=== PATIENT | female | born 1980 | race Caucasian/White ===

== ENCOUNTER 2021-06-21 04:59 | Emergency (ER) | payer OTHER, SELFPAY ==
--- NOTE | ~2021-06-21 | CT_ITS ---
EXAMINATION: CT abdomen pelvis wo con DATE: 06/21/2021 07:04 INDICATION: Renal stone presenting with lower abdominal pain TECHNIQUE: Computed tomography (CT) of the abdomen and pelvis was performed without intravenous contr ast. Automated exposure control and iterative reconstruction technique were employed. The dose-length product was 350.71 mGy-cm. COMPARISON: None FINDINGS: Lung bases are clear. Heart size is normal. No pericardial or pleural effusion. Liver, gallbladder, s pleen, pancreas and bilateral adrenal glands are normal. 7 x 4 x 2 mm obstructing stone in the proxim al left ureter with moderate left hydronephrosis and prominent left perinephric stranding. 1 mm nonob structing stones at upper and lower pole calyces of the right kidney. Bowels including the appendix a re normal. Bladder and anteverted uterus are normal. Bilateral tubal ligation rings in expected posit ions. Small amount of likely physiologic free fluid in the cul-de-sac. No pathologically enlarged abd ominal or pelvic lymphadenopathy. Mild thoracolumbar dextrocurvature. IMPRESSION: 1. Bilateral nephrolithiasis with obstructing 7 x 4 x 2 mm proximal left ureteral stone with moderate left hydronephrosis. Correlate with urinalysis to exclude associated ascending urinary tract infecti on. Reviewed, dictated and finalized at location A. IMPRESSION: 1. Bilateral nephrolithiasis with obstructing 7 x 4 x 2 mm proximal left ureter al stone with moderate left hydronephrosis. Correlate with urinalysis to exclud e associated ascending urinary tract infection.
[2021-06-21 05:00] VITALS: BP 139/90; PULSE 86; RESP 20; TEMP 36.8; O2SAT 99
[2021-06-21] MEDS: ONDANSETRON INJ 4 MG/2 ML VIAL IV PUSH ×2 (05:25→07:35)
[2021-06-21] MEDS: SODIUM CHLORIDE 0.9% IV 1,000 ML 999 ML IV CONT (05:26)
[2021-06-21] MEDS: PANTOPRAZOLE SODIUM IV 40 MG VIAL IV PUSH (05:27)
[2021-06-21] MEDS: DICYCLOMINE HCL INJ 20 MG/2 ML VIAL IM (05:27)
[2021-06-21] MEDS: KETOROLAC 30 MG/ML VIAL (*BKC) IV PUSH (05:31)
[2021-06-21 05:44] LABS: Basophils Absolute Auto 0.04 K/mm3 (0.00-0.10); Basophils Percent Auto 0.4 % (0.0-1.0); Eosinophils Percent Auto 0.9 % (1.0-6.0); Hematocrit 37.5 % (35.0-49.0); Hemoglobin 12.5 g/dL (12.0-15.0); Immature Granulocyte Absolute 0.05 K/mm3 (0.00-0.00); Immature Granulocyte Percent A 0.5 % (0.0-0.0); Lymphocytes Percent Auto 9.5 % (18.0-42.0); Mean Corpuscular HGB Conc 33.3 g/dL (32.0-36.0); Mean Corpuscular Hemoglobin 32.3 pg (27.0-31.0); Mean Corpuscular Volume 96.9 fL (78.0-102.0); Mean Platelet Volume 10.1 fl (9.2-11.8); Monocytes Absolute Auto 0.44 K/mm3 (0.10-0.90); Monocytes Percent Auto 4.2 % (2.0-11.0); Neutrophils Absolute Auto 8.9 K/mm3 (1.7-7.2); Neutrophils Percent Auto 84.5 % (50.0-70.0); Platelet Count Result 211 K/mm3 (150-420); Red Blood Count 3.87 M/mm3 (4.20-5.40); Red Cell Distribution Width 12.3 % (11.6-14.4); White Blood Count 10.5 K/mm3 (4.8-10.8)
[2021-06-21 05:47] LABS: Add Urine Microscopic? YES; Appearance Urine Clear (Clear); Bilirubin Urine Negative (Negative); Blood Urine 1+ (Negative); Color Urine Light Yellow (Yellow); Glucose Urine UA Negative (Negative); Ketones Urine Negative (Negative); Leukocyte Esterase Ur 2+ LEU/UL (Negative); Nitrate Urine Negative (Negative); Protein Urine 1+ (Negative); Urobilinogen Urine 0.2 mg/dL (0.2-1.0); pH Urine 7.5 (5.0-8.0)
--- NOTE | 2021-06-21 05:55 | ED.ABDPAIN ---
HPI - Abdominal Pain General Chief Complaint: Abdominal Pain <Kumar L. MD Adan Mackenzie Last Filed: 06/28/21 13:02> Stated Complaint: SICKNESS <MD Adan Lopez Last Filed: 06/28/21 13:02> Time Seen by Provider: 06/21/21 05:15 <MD Adan Lopez Last Filed: 06/28/21 13:02> Source: patient <MD Adan Lopez Last Filed: 06/28/21 13:02> Mode of arrival: ambulatory <MD Adan Lopez Last Filed: 06/28/21 13:02> Limitations: no limitations <MD Adan Lopez Last Filed: 06/28/21 13:02> History of Present Illness HPI narrative: Patient ate a chicken sandwich at 6pm from [employer] and by 9:30pm had developed recurrent nausea and emesis that has lasted all night. She has had severe abdominal cramping associated with recurrent nausea and emesis. This has been ongoing since 930pm. Nothing has helped decrease her nausea. <MD Adan Lopez Last Filed: 06/28/21 13:02> MD elicited complaint: abdominal pain <MD Adan Lopez Last Filed: 06/28/21 13:02> Onset (ago): hour(s) <MD Adan Lopez Last Filed: 06/28/21 13:02> Pain Consistency: constant <MD Adan Lopez Last Filed: 06/28/21 13:02> Location: diffuse <MD Adan Lopez Last Filed: 06/28/21 13:02> Severity: severe <MD Adan Lopez Last Filed: 06/28/21 13:02> Quality: cramping <MD Adan Lopez Last Filed: 06/28/21 13:02> Radiation: epigastric <MD Adan Lopez Last Filed: 06/28/21 13:02> Exacerbating factors: other (chicken sandwich from [employer]) <MD Adan Lopez Last Filed: 06/28/21 13:02> Relieving factors: nothing <MD Adan Lopez Last Filed: 06/28/21 13:02> Context: confirms possible food poisoning <Kumar Mackenzie, MD - Last Filed: 06/28/21 13:02> Associated symptoms: denies other symptoms <MD Adan Lopze Last Filed: 06/28/21 13:02> Related Data Patient : No <MD Adan Lopez Last Filed: 06/28/21 13:02> Home Medications: Home Medications Medication Instructions Recorded Confirmed alprazolam 0.25 mg PO BID 06/21/21 06/21/21 bupropion HCl [Wellbutrin XL] 300 mg PO QAM 06/21/21 06/21/21 <MD Adan Lopez Last Filed: 06/28/21 13:02> Allergies/Adverse Reactions: Allergies Allergy/AdvReac Type Severity Reaction Status Date / Time No Known Allergies Allergy Verified 06/21/21 18:59 <MD Adan Lopez Last Filed: 06/28/21 13:02> Review of Systems Constitutional: Constitutional: Reports fatigue <Kumar LMD Adan Suero Last Filed: 06/28/21 13:02> Eyes: Eyes: Reports no additional eye complaints <Kumar L. MD Adan Mackenzie Last Filed: 06/28/21 13:02> ENT: Reports system reviewed and no additional complaints, except as documented <MD Adan Lopez Last Filed: 06/28/21 13:02> Cardiovascular: Cardiovascular: Reports no additional cardiovascular complaints <Kumar L. MD Adan Mackenzie Last Filed: 06/28/21 13:02> Respiratory: Respiratory: Reports no additional respiratory complaints <Kumar LMD Adan Suero Last Filed: 06/28/21 13:02> Gastrointestinal: Gastrointestinal: Reports as per HPI, Reports abdominal pain, Reports nausea and Reports vomiting <Kumar LMD Adan Suero Last Filed: 06/28/21 13:02> Genitourinary: Genitourinary: Reports no additional female genitourinary complaints <Kumar LMD Adan Suero Last Filed: 06/28/21 13:02> Musculoskeletal: Musculoskeletal: Reports no additional musculoskeletal complaints <Kumar LMD Adan Suero Last Filed: 06/28/21 13:02> Integumentary/Breasts: Skin/Breast: Reports system reviewed and no additional complaints, except as docu <Kumar L. Day, MD - Last Filed: 06/28/21 13:02> Neurologic: Reports system reviewed and no additional complaints, except as documented <Kumar LObdulio Mackenzie MD - Last Filed: 06/28/21 13:02> Psychiatric: Psychiatric: Reports no additional psychiatric complaints <Kumar L. MD Avril - Last Filed: 06/28/21 13:02> Endocrine: Endocrine: Reports no additional endocrine complaints <Kumar LObdulio Mackenzie MD
[2021-06-21 05:56] LABS: Bacteria Urine 1+ /hpf; Squamous Epithelial Cell Urine None seen /hpf (Few); WBC Urine 21-30 /hpf (0-3)
[2021-06-21 06:00] LABS: Alanine Aminotransferase 24 U/L (14-59); Albumin Level 3.2 g/dL (3.4-5.0); Alkaline Phosphatase 49 U/L (46-116); Anion Gap 11 mmol/L (8-16); Aspartate Amino Transferase 14 U/L (15-37); Bilirubin,Total 0.2 mg/dL (0.00-1.00); Blood Urea Nitrogen 12 mg/dL (7-18); Calcium 8.3 mg/dL (8.5-10.1); Carbon Dioxide 27 mmol/L (21-32); Chloride 107 mmol/L (98-108); Estimated CRCL calculation 61 ml/min; Estimated Glomerular Filt Rate 57; Glucose 111 mg/dL (70-99); Lipase 66 U/L (73-393); Osmolality Calculated 300 mOsm/kg (285-295); Potassium 3.5 mmol/L (3.5-5.1); Sodium 145 mmol/L (136-145); Total Protein 5.9 g/dL (6.4-8.2)
[2021-06-21 06:45] LABS: Pregnancy On Board Control Positive; Urine Pregnancy Test Negative
[2021-06-21] MEDS: BACLOFEN 10 MG TABLET 20 MG PO (06:47)
[2021-06-21] MEDS: MORPHINE SULFATE (*CRX) 2 MG/ML INJ IV PUSH ×4 (07:35→13:02)
--- NOTE | 2021-06-21 07:45 | PC.NURSE ---
[facility] contacted for o/c urologist. Dr. Chen o/c per Yes[facility] tank house operator, exchange contacted.
[2021-06-21 08:26] VITALS: BP 115/76; PULSE 99; RESP 18; O2SAT 97
--- NOTE | 2021-06-21 08:58 | PCDIET ---
at [address] Chen's PA, pt accepted. will put pt on surgery schedule today for 1700. awaiting call-back from [place] spikemaking supervisor to confirm admission and bed placement.
--- NOTE | 2021-06-21 09:16 | PC.NURSE ---
pt voices continued pain to left flank. denies nausea at this time. on phone with family making arrangements for car and hotel and school. iv lock intact to right forearm.
--- NOTE | 2021-06-21 09:43 | PC.NURSE ---
[facility] nursing super visor contacted to inquire on bed status. pt will need to be in PACU at noon today for the surgery. supervisor kennel attempting to locate a bed for her until then. supervisor kennel states she will call back in 30 min with update.
--- NOTE | 2021-06-21 10:29 | PC.NURSE ---
report given to Yesenia general warehouse worker, at [facility]. pt to be transferred at 1400 directly to PACU. saas acceptred scheduled transfer and will be here to pick pt up at 1400. pt moved to room 202 for comfort during wait. voices much pain relief after last pain med administration.
--- NOTE | 2021-06-21 10:35 | PC.NURSE ---
Patient to 205 for ED hold, to leave at 1400 for cynthia to have outpatient surgery, oriented to room, states pain is still 10/10, tearful on arrival to room,
[2021-06-21 11:21] VITALS: BP 115/90; PULSE 110; RESP 22; TEMP 37.1; O2SAT 95
--- NOTE | 2021-06-21 11:33 | PC.NURSE ---
Pain getting worse, morphine given for pain at this time, encouraged to let pain med work
[2021-06-21] MEDS: SODIUM CHLORIDE 0.9% IV 1,000 ML 100 ML IV CONT (11:42)
--- NOTE | 2021-06-21 11:48 | PC.NURSE ---
fluids started, hat placed in bathroom to monitor urine output, pain less, still moans but not crying 08/10
--- NOTE | 2021-06-21 12:58 | PC.NURSE ---
pain getting worse, verbal order to repeat 2mg IV morphine
--- NOTE | 2021-06-21 13:05 | PC.NURSE ---
morphine given for pain
[2021-06-21 13:06] VITALS: BP 115/81; PULSE 97; RESP 20; TEMP 37.2; O2SAT 95
--- NOTE | 2021-06-21 13:51 | PC.NURSE ---
Awaiting EMS for transfer to [place], resp non labored, fluids infusing,
--- NOTE | 2021-06-21 14:05 | PC.NURSE ---
discharged per ems for transfer to [place], all personal items given to patient in a bag
--- NOTE | 2021-06-21 14:10 | PC.NURSE ---
Pre op nurse given report, up dated on vitals and med given
[2021-06-21 14:12] VITALS: BP 115/87; PULSE 97; RESP 20; TEMP 37.2; O2SAT 95
== END 2021-06-21 14:10 | disposition short-term general hospital (02) ==
LOC: CHSED 09:28 → CHS2ND 10:39
PROVIDERS: Emergency Provider Emergency Medicine
DX: A05.9 Bacterial foodborne intoxication, unspecified (principal); N39.0 Urinary tract infection, site not specified; N20.0 Calculus of kidney
CPT/HCPCS: 36415; 74176; 80053; 81001; 81025; 83690; 85025; 87077; 87086; 87088; 87186; 87491; 87591; 96361; 96365; 96372; 96375; 96376; 99285; A9270; C9113; J0500; J0696; J1885; J2270; J2405; J7030

== ENCOUNTER 2021-06-21 18:10 | Observation (INO) | payer OTHER, SELFPAY ==
[2021-06-21] VITALS (11 sets, daily range): BP systolic 117–148; BP diastolic 80–98; PULSE 72–106; RESP 13–20; TEMP 35.7–36.6; O2SAT 98–100; BMI 24.9
--- NOTE | ~2021-06-21 | XR_ITS ---
EXAMINATION: XR abdomen/kub 1V EXAM DATE: 06/21/2021 17:21 INDICATION: Left ureteral stone. Postoperative. TECHNIQUE: Frontal projection(s) of the abdomen for interpretation. Comparison is made to prior exami nation from CT renal scan 06/21/2021. FINDINGS: There is a left-sided double-J ureteral stent in expected position. Suspect identification of sizable left proximal ureteral stone at the L3 level, on one of the 2 images obtained. This findin g has been indicated, marked on the examination for review, clinical correlation. Moderate amount of colonic gas. No small bowel obstruction. There is no organomegaly. IMPRESSION: 1. Probable identification left proximal ureteral stone. 2. Stent in position. Reviewed, dictated and finalized at location A.
--- NOTE | ~2021-06-21 | XR_ITS ---
EXAMINATION: XR retrograde pyelo w/stent LT EXAM DATE: 06/21/2021 16:47 INDICATION: Left ureteral stent placement. Obstructive nephropathy. TECHNIQUE: Fluoroscopy used during XR retrograde pyelo w/stent LT performed by Dr. Gagan Llanes MD, urologist. The radiologist Meliton Manning M.D. dictating this report of the image(s) available wa s not present for the procedure. Total fluoroscopic time of 37 seconds. The DAP for this procedure was 497 radcm2. A total of 90 images sent to PACS from the exam. Cine run(s) available for review. Correlation is made to CT abdomen pelvis earlier same date. FINDINGS: Probable identification of sizable left proximal ureteral stone on the wood cutter image. The le ft ureter was cannulated, injected Left ureter was cannulated, injected. Moderate left hydronephrosis . Double-J ureteral stent was placed. Correlate with procedure note. IMPRESSION: Left proximal ureteral stone, moderate hydronephrosis. Stent in position. Reviewed, dictated and finalized at location A. IMPRESSION: Left proximal ureteral stone, moderate hydronephrosis. Stent in pos ition.
[2021-06-21] MEDS: fentaNYL CITRATE INJ (*CRX) 100 MCG/2 ML VIAL 50 MCG IV PUSH (15:25)
--- NOTE | 2021-06-21 15:41 | P.CONUR_ITS ---
Assessment and Plan Assessment and plan (1) Left ureteral stone: Code(s): N20.1 - Calculus of ureter Status: Acute (2) UTI (urinary tract infection): Qualifiers: Hematuria presence: with hematuria Urinary tract infection type: acute cystitis Qualified Code(s): N30.01 - Acute cystitis with hematuria Code(s): N39.0 - Urinary tract infection, site not specified Status: Acute Assessment and Plan: * In light of obstructive uropathy with evidence of urinary tract infection will defer definitive stone intervention at this point. * Will plan cystoscopy with left ureteral stent placement. She will likely need a left ESWL in the next several weeks as definitive management for her stone. Urology Consult Note HPI Date Seen: 06/21/21 Requesting Physician: Rah Cardenas MD Primary Care Provider: UNKNOWN,DOCTOR Consult Narrative Narrative: Jessa Bergman is a 40 year old female without a history of urolithiasis, until now. 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 Last night she developed acute left flank pain radiating into her left lower quadrant. This was associated with nausea and vomiting. She attributed this to a chicken sandwich she 8 from a gas station but imaging at the ER in [place] reveals an obstructing 7 mm left proximal ureteral calculus. Although she has had no fevers or chills he has mild leukocytosis and notable pyuria on her urinalysis. Review of Systems Cardiovascular: Cardiovascular: Denies chest pain, Denies lightheadedness, Denies palpitations and Denies dyspnea Respiratory: Respiratory: Denies dyspnea Gastrointestinal: Gastrointestinal: Reports abdominal pain, Denies diarrhea, Reports nausea and Reports vomiting Genitourinary: Genitourinary: Denies hematuria and Denies dysuria Endocrine: Endocrine: Denies palpitations PMFSH Past Medical History Medical History Renal calculi Surgical History Surgical History H/O tubal ligation Family History Family History Father Bipolar 1 disorder Social History Social History Smoking status: Current every day smoker Alcohol intake: current Alcohol use details: minimal use Substance use type: marijuana Gender identity (if verbalized by the patient): Female Meds Home Medications and Allergies Home Medications Medication Instructions Recorded Confirmed Type alprazolam 0.25 mg PO BID 06/21/21 06/21/21 History bupropion HCl [Wellbutrin XL] 300 mg PO QAM 06/21/21 06/21/21 History levofloxacin 500 mg PO DAILY #7 tablet 06/21/21 Rx Allergies Allergy/AdvReac Type Severity Reaction Status Date / Time No Known Allergies Allergy Verified 06/21/21 15:28 Exam Const: General: no acute distress Resp: Effort & Inspection: normal respiratory effort GI: Inspection: non-distended GI Palp: No abdominal tenderness and No Guarding due to palpation present (GI) Auscultation: normal bowel sounds
--- NOTE | 2021-06-21 15:44 | WPDHPUPDATE1 ---
History and Physical Update Update Date/Time: 06/21/21 15:44 History and Physical has been reviewed, including an updated exam of the patient. There are NO changes in the patient's condition. Risks, benefits, and alternatives have been discussed and questions answered. Patient agrees to proceed with procedure.
[2021-06-21] MEDS: fentaNYL CITRATE INJ (*CRX) 100 MCG/2 ML VIAL 25 MCG IV PUSH ×4 (15:52→17:22)
--- NOTE | 2021-06-21 15:53 | WPDANESEPPF ---
Anes - Initial Pre Proc Eval Procedure: Operation Date: 06/21/21 17:00 Proposed Procedures p Cystoscopy, Left Stent Placement - Gagan Llanes MD Date/Time: 06/21/21 15:53 Surgeon: Rah Cardenas MD Pre Op Diagnosis: left renal stone Patient Data Age: 40 Gender: F Height: Weight: Allergies Allergy/AdvReac Type Severity Reaction Status Date / Time No Known Allergies Allergy Verified 06/21/21 15:28 Home Medications Medication Instructions Recorded Confirmed Type alprazolam 0.25 mg PO BID 06/21/21 06/21/21 History bupropion HCl [Wellbutrin XL] 300 mg PO QAM 06/21/21 06/21/21 History Patient hx anesthesia problems: none Family hx anesthesia problems: none PMFSH Past Medical History Medical History Renal calculi Surgical History Surgical History H/O tubal ligation Family History Family History Father Bipolar 1 disorder Social History Social History Smoking status: Current every day smoker Alcohol intake: current Alcohol use details: minimal use Substance use type: marijuana Gender identity (if verbalized by the patient): Female Anes - Eval Final PreProcedure Day of Procedure 06/21/21 15:53 Patient weight: normal Heart: regular rate and rhythm Lungs: clear to auscultation and normal air movement Airway: Mallampati scale class II Neurological: alert and oriented Last oral intake: >/= 8 hours ASA classification: II Emergent: no Anesthetic plan: proceed Anesthesia type and monitoring: general GIVS and standard monitoring Informed Consent: The patient's anesthetic plan and its attendant risks and benefits were discussed with the patient/family/POA. Questions were solicited and answers provided to the satisfaction of the patient/family/POA.
[2021-06-21] MEDS: ONDANSETRON INJ 4 MG/2 ML VIAL IV PUSH (16:05)
[2021-06-21] MEDS: LACTATED RINGERS 1,000 ML 30 ML IV CONT (16:06)
--- NOTE | 2021-06-21 16:50 | W.PM.PROC2 ---
Procedure Note - Detailed Date of Procedure 06/21/21 Pre-op Diagnosis Left proximal ureteral stone Post-op Diagnosis same Procedure Performed Cystoscopy, left retrograde pyelography left ureteral stent placement Surgeon Gagan Llanes MD Anesthesia general Description of Procedure patient brought to the operative suite where she is prepped draped in routine sterile fashion while in dorsal lithotomy position. [place] after the uneventful induction of a general anesthetic. Cystoscopy is undertaken with a 19 F rigid cystoscope. Bladder neck and urethra endoscopically normal. There is no intravesical foreign body neoplasm. She has a single orthotopic ureteral orifice bilaterally. Angiographic catheter was used to obtain a retrograde pyelogram. This shows a persistent stone in the left proximal ureter. A 0.035 in glidewire was advanced in the renal pelvis in a 4.8 F variable length left ureteral stent is positioned with the proximal coil in the renal pelvis and distal coil in the bladder. Scopes and wires removed and she was taken to the recovery room good condition. Drains Yes Packing No Pathology none sent Complications No immediate complications Condition stable Disposition PACU
--- NOTE | 2021-06-21 17:28 | SUR.PHASEI ---
50mcg of Fentanyl given at 1719 leftover from anesthesia. RN called anesthesiologist for orders and there is still none in the MAR. Patient said pain went from a 6 to a 3 and id tolerable now.
--- NOTE | 2021-06-21 18:30 | PM.IMHP ---
H&P: HPI History of Present Illness Date/Time: 06/21/21 18:30 Chief Complaint: Obstructing left ureteral stone. Narrative: This is a 40-year-old female with history of kidney stone at the age of 22 who was transferred to [place] today for management of an obstructing left ureteral stone noted on imaging done in the emergency department at the [facility]. She developed acute left flank pain last evening around 21:30 last evening with associated nausea and vomiting. The pain was colicky in nature and did radiate into the left lower quadrant. Initially she thought it was perhaps due to food that she had eaten earlier in the evening though a CT of the abdomen and pelvis showed bilateral nephrolithiasis with obstructing left ureteral stone with moderate hydronephrosis. She is now status post cystoscopy with stent placement per Dr. Llanes and she was having quite a bit of cramping and pulling pain. She also notes dysuria and hematuria though that just started after her cystoscopy. She has not had fever, chills, or sweats. She has had some nausea but no vomiting. Review of Systems Review of Systems: Narrative: Twelve systems were reviewed with pertinent positives and negatives as per HPI. No recent cold or flu symptoms. She denies chest pain shortness of breath. No exposure to those positive for COVID-19. Except as documented, all other systems were reviewed and are negative. [facility] Past Medical History Medical History Anxiety Bilateral nephrolithiasis (06/21/21) Surgical History Surgical History History of tubal ligation Family History Family History Father Bipolar 1 disorder Social History Social History (Updated 06/21/21 @ 22:02 by Eboni Ochoa PA-C) Social History: Surrogate decision maker: jonathan Dunbar. Code status: Full code. Smoking packs per day: 1 Smoking cigarettes per day: 20.0 Years smoked: 10 Smoking pack-years: 10.00 Smoking status: Current every day smoker Tobacco type: cigarettes Additional smoking assessment comments: Patient is trying to quit smoking in is down to a pack a week. Alcohol intake: current Drinks per week: 1 Alcohol use details: Rare alcohol use, in moderation. Substance use: current Substance use type: marijuana Living arrangements: with family Additional living arrangements comments: Lives in [place]. 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 Meds Home Medications and Allergies Home Medications Medication Instructions Recorded Confirmed Type alprazolam 0.25 mg PO BID 06/21/21 06/21/21 History bupropion HCl [Wellbutrin XL] 300 mg PO QAM 06/21/21 06/21/21 History Allergies Allergy/AdvReac Type Severity Reaction Status Date / Time No Known Allergies Allergy Verified 06/21/21 18:59 Vital Signs Vital Signs - 24 hr 06/21/21 15:59 06/21/21 16:45 06/21/21 17:00 Temperature 97.8 F 97.1 F L Pulse Rate 95 72 76 Respiratory Rate 18 18 16 Blood Pressure 145/90 H 117/82 118/87 Pulse Oximetry 100 100 100 06/21/21 17:15 06/21/21 17:30 06/21/21 17:45 Temperature Pulse Rate 82 81 106 H Respiratory Rate 13 20 20 Blood Pressure 121/86 124/88 136/95 H Pulse Oximetry 100 99 99 Exam Narrative: Exam Narrative: General: Well-developed female in the semi-Neil position in bed in moderate pain. Weight: 74.3 kg. BMI: 24.9. HEENT: PERRL, EOMI. Sclerae anicteric. Tacky mucous membranes. Neck: Supple. Respiratory: Lungs are clear to auscultation bilaterally. Cardiovascular: Regular rate and rhythm with S1-S2. Gastrointestinal: Abdomen is soft and nondistended with positive bowel sounds. She is tender to palpation in the left mid and lower quadrant. Equivocal
--- NOTE | 2021-06-21 18:36 | ADMGEN ---
This patient, Jessa Bergman, was admitted to Medical Room 346-01. Patient/family oriented to hospital policies and general routines including ID bracelet, bed and alarms, visiting hours, pain management, procedures, bathroom and other care routines, personal items, smoking policy, room service/diet, and visiting hours. Information on how to activate the Rapid Response Team has been discussed. Patient/Family are encouraged to report perceived risks to care and to ask questions if they do not understand what they are told or what they should do.
[2021-06-21] MEDS: SODIUM CHLORIDE 0.9% IV 1,000 ML 100 ML IV CONT ×2 (18:38→18:48)
[2021-06-21] MEDS: ALPRAZolam (*CRX) 0.25 MG TABLET PO (18:52)
[2021-06-21] MEDS: MORPHINE SULFATE (*CRX) 2 MG/ML INJ IV PUSH ×2 (20:10→21:12)
[2021-06-22] VITALS (8 sets, daily range): BP systolic 110–132; BP diastolic 44–82; PULSE 68–78; RESP 12–20; TEMP 35.7–36.8; O2SAT 98–100
[2021-06-22] MEDS: MORPHINE SULFATE (*CRX) 4 MG/ML INJ IV PUSH ×5 (00:20→19:43)
[2021-06-22] MEDS: SODIUM CHLORIDE 0.9% IV 1,000 ML 100 ML IV CONT ×2 (05:29→16:05)
--- NOTE | 2021-06-22 06:33 | WPDUROPN2 ---
Progress Note: A&P Assessment and Plan (1) Hydronephrosis with urinary obstruction due to ureteral calculus: Code(s): N13.2 - Hydronephrosis with renal and ureteral calculous obstruction Status: Acute Assessment and Plan: KUB: stent in position and ureteral stone calcified. Will need ESWL once probable infection has been treated. Unclear if she'll f/u with urologist in [place] or here for definitive stone treatment. Remains on Rocephin pending culture. Subjective Subjective Date/Time Seen: 06/22/21 06:33 Attypical lower back pain - seems to be tolerating stent reasonably well Review of Systems Cardiovascular: Cardiovascular: Denies chest pain, Denies lightheadedness, Denies palpitations and Denies dyspnea Respiratory: Respiratory: Denies dyspnea Gastrointestinal: Gastrointestinal: Denies diarrhea, Denies nausea and Denies vomiting Genitourinary: Genitourinary: Denies hematuria and Denies dysuria Endocrine: Endocrine: Denies palpitations Exam Const: General: no acute distress Resp: Effort & Inspection: normal respiratory effort GI: Inspection: non-distended GI Palp: No abdominal tenderness and No Guarding due to palpation present (GI) Auscultation: normal bowel sounds Objective Data Vital Signs Vital Signs: Vital Signs - 24 hr 06/21/21 15:59 06/21/21 16:45 06/21/21 17:00 Temperature 97.8 F 97.1 F L Pulse Rate 95 72 76 Respiratory Rate 18 18 16 Blood Pressure 145/90 H 117/82 118/87 Pulse Oximetry 100 100 100 06/21/21 17:15 06/21/21 17:30 06/21/21 17:45 Temperature Pulse Rate 82 81 106 H Respiratory Rate 13 20 20 Blood Pressure 121/86 124/88 136/95 H Pulse Oximetry 100 99 99 06/21/21 18:00 06/21/21 18:30 06/21/21 18:45 Temperature 97.5 F L 97.5 F L Pulse Rate 90 92 86 Respiratory Rate 18 18 18 Blood Pressure 148/89 H 141/98 H 138/92 H Pulse Oximetry 98 100 100 06/21/21 19:15 06/21/21 20:15 06/22/21 00:00 Temperature 96.6 F L 96.2 F L 96.4 F L Pulse Rate 81 77 77 Respiratory Rate 18 18 18 Blood Pressure 128/83 127/80 110/75 Pulse Oximetry 98 100 99 06/22/21 00:15 06/22/21 05:00 Temperature 96.4 F L 97.6 F Pulse Rate 77 78 Respiratory Rate 18 16 Blood Pressure 110/75 110/79 Pulse Oximetry 99 100 Intake/Output Intake/Output: Intake & Output 06/19/21 06/20/21 06/21/21 06/22/21 23:59 23:59 23:59 23:59 Intake Total 1350 1000 Output Total 500 Balance 1350 500 Meds/Results Medications: Active Medications Generic Name Dose Route Start Last Admin Trade Name Freq PRN Reason Stop Dose Admin Alprazolam 0.25 mg 06/21/21 18:10 06/21/21 18:52 Alprazolam (*Crx) 0.25 Mg Tablet PO 0.25 mg BID FRANKY Administration Bupropion HCl 300 mg 06/22/21 09:00 Bupropion Hcl Xl (24 Hr) 150 Mg Tabcr PO QAM FRANKY Sodium Chloride 1,000 mls @ 100 mls/hr 06/21/21 18:10 06/22/21 05:29 Normal Saline Iv IV CONT 100 mls/hr .Q10H FRANKY Administration Ceftriaxone Sodium/Dextrose 1 gm in 50 mls @ 100 mls/hr 06/21/21 18:00 06/21/21 19:30 Rocephin 1 Gm/D5w 50 Ml IVPB Infused Q24H FRANKY Infusion Morphine Sulfate 4 mg 06/21/21 22:04 06/22/21 05:28 Morphine Sulfate (*Crx) 4 Mg/Ml Inj IV PUSH 4 mg Q4H PRN Administration Pain Rated 7-10 Radiology Results: ITS Impressions Retrograde Pyelogram 06/21/21 16:50 IMPRESSION: Left proximal ureteral stone, moderate hydronephrosis. Stent in position. Abdomen X-Ray 06/21/21 17:24 IMPRESSION: 1. Probable identification left proximal ureteral stone. 2. Stent in position. Quality VTE Prophylaxis VTE prophylaxis: mechanical ordered
[2021-06-22 06:34] LABS: Basophils Percent Auto 0.3 % (0.2-1.2); Eosinophils Percent Auto 0.3 % (0-4.4); Hematocrit 32.9 % (37.0-47.0); Immature Granulocyte Absolute 0.08 K/mm3 (0.00-0.031); Immature Granulocyte Percent A 0.5 % (0-0.5); Lymphocytes Absolute Auto 1.13 K/mm3 (0.9-3.2); Lymphocytes Percent Auto 7.1 % (18.3-44.2); Mean Corpuscular HGB Conc 33.4 g/dl (32-36); Mean Corpuscular Volume 95.6 fl (80-100); Mean Platelet Volume 10.6 fl (7.4-10.4); Monocytes Absolute Auto 0.9 K/mm3 (0.1-0.6); Monocytes Percent Auto 5.5 % (2.6-8.5); Neutrophils Absolute Auto 13.8 K/mm3 (1.3-6.7); Neutrophils Percent Auto 86.3 % (45.5-73.1); Platelet Count Result 160 k/mm3 (150-375); Red Blood Count 3.44 M/mm3 (4.2-5.4); Red Cell Distribution Width 12.6 % (11.5-14.5); White Blood Count 15.9 K/mm3 (4.5-10.0)
[2021-06-22 06:50] LABS: Anion Gap 6 mmol/L (8-16); Blood Urea Nitrogen 11 mg/dL (7-17); Calcium 8.7 mg/dL (8.4-10.2); Carbon Dioxide 24 mmol/L (22-30); Chloride 105 mmol/L (98-107); Estimated CRCL calculation 75 ml/min; Estimated Glomerular Filt Rate > 60; Glucose 106 mg/dL (65-110); Magnesium 1.6 mg/dL (1.6-2.3); Potassium 3.7 mmol/L (3.4-5.0); Sodium 135 mmol/L (137-145)
[2021-06-22] MEDS: ALPRAZolam (*CRX) 0.25 MG TABLET PO ×2 (08:28→17:09)
[2021-06-22] MEDS: buPROPion HCL XL (24 HR) 150 MG TABCR 300 MG PO (08:28)
--- NOTE | 2021-06-22 11:25 | PC.NURSE ---
On 06/22/21, the student, [ Senia Nunn], provided care and completed [facility] documentation on this patient. I have reviewed the student's documentation and agree with the findings.
[2021-06-22] MEDS: ONDANSETRON INJ 4 MG/2 ML VIAL IV PUSH ×3 (12:11→19:53)
--- NOTE | 2021-06-22 17:18 | PM.IMPN ---
Progress Note: A&P Assessment and Plan (1) Hydronephrosis with urinary obstruction due to ureteral calculus: Code(s): N13.2 - Hydronephrosis with renal and ureteral calculous obstruction Status: Acute Assessment and Plan: From ER at [facility] after she was found to have an obstructing left ureteral stone with hydronephrosis S/p cystoscopy with stent placement per Dr. Llanes Pain managment Continue ceftriaxone Follow UC (2) Abnormal urinalysis: Code(s): R82.90 - Unspecified abnormal findings in urine Status: Acute Assessment and Plan: Follow UC (3) Bilateral nephrolithiasis: Onset Date: 06/21/21 Code(s): N20.0 - Calculus of kidney Status: Chronic (4) Anxiety: Code(s): F41.9 - Anxiety disorder, unspecified Status: Acute Assessment and Plan: Continue home meds Additional Plan From ER at [facility] after she was found to have an obstructing left ureteral stone with hydronephrosis S/p cystoscopy with stent placement per Dr. Llanes Pain managment Continue ceftriaxone Follow UC Subjective Date/time seen: 06/22/21 17:18 Review of Systems Review of Systems: All systems reviewed & are unremarkable except as noted in HPI and below Exam Const: General: no acute distress, alert and awake Orientation/consciousness: patient oriented x3 HENMT: Head: normocephalic and atraumatic Ears: hearing grossly normal bilaterally and external ears normal Face and sinus: face symmetric Mouth: Yes Normal oral and palatal mucosa present Eyes: Pupils: Equal, round and reactive pupils present EOM: EOMs intact bilaterally Neck: Neck: full ROM, trachea midline and no JVD Thyroid: thyroid normal Chest: Chest palpation & inspection: normal inspection of the chest Resp: Effort & Inspection: normal respiratory effort Auscultation: clear to auscultation bilaterally Cardio: Jugular venous distension: no JVD Rate: regular rate Rhythm: regular rhythm Heart sounds: S1 normal heart sound present and S2 normal heart sound present GI: Inspection: normal to inspection GI Palp: Yes Soft to palpation Percussion: Yes normal to percussion Auscultation: normal bowel sounds : General: Yes no CVA tenderness Back/Spine/Pelvis: Back: no CVA tenderness Skin: General skin exam: normal color Rashes: no rashes Neuro: General: patient oriented x3 and CN's II-XI intact bilaterally Cranial nerves: Yes Equal, round and reactive pupils present Speech: normal speech Psych: Appearance: grossly normal Affect: normal affect Judgement: Good judgement present (Psych) Objective Data Vital Signs Vital Signs: Vital Signs - 24 hr 06/21/21 17:30 06/21/21 17:45 06/21/21 18:00 Temperature Pulse Rate 81 106 H 90 Respiratory Rate 20 20 18 Blood Pressure 124/88 136/95 H 148/89 H Pulse Oximetry 99 99 98 06/21/21 18:30 06/21/21 18:45 06/21/21 19:15 Temperature 36.4 C L 36.4 C L 35.9 C L Pulse Rate 92 86 81 Respiratory Rate 18 18 18 Blood Pressure 141/98 H 138/92 H 128/83 Pulse Oximetry 100 100 98 06/21/21 20:15 06/22/21 00:00 06/22/21 00:15 Temperature 35.7 C L 35.8 C L 35.8 C L Pulse Rate 77 77 77 Respiratory Rate 18 18 18 Blood Pressure 127/80 110/75 110/75 Pulse Oximetry 100 99 99 06/22/21 05:00 06/22/21 07:58 06/22/21 09:35 Temperature 36.4 C 36.8 C 35.7 C L Pulse Rate 78 74 68 Respiratory Rate 16 18 20 Blood Pressure 110/79 114/82 132/82 Pulse Oximetry 100 100 100 06/22/21 11:30 06/22/21 13:32 Temperature 35.7 C L Pulse Rate 76 Respiratory Rate 20 12 Blood Pressure 113/44 L Pulse Oximetry 99 98 Intake/Output Intake/Output: Intake & Output 06/19/21 06/20/21 06/21/21 06/22/21 23:59 23:59 23:59 23:59 Intake Total 1350 2910 Output Total 1400 Balance 1350 1510 Meds/Results Medications: Active Medications Generic Name Dose Route Start Last Admin Trade Name Freq PRN Reason Stop Dose Admin Alprazolam 0.25 mg 06/21/21 18:
[2021-06-23] MEDS: MORPHINE SULFATE (*CRX) 4 MG/ML INJ IV PUSH ×2 (00:07→04:38)
[2021-06-23] MEDS: ONDANSETRON INJ 4 MG/2 ML VIAL IV PUSH ×3 (00:07→09:42)
[2021-06-23] MEDS: SODIUM CHLORIDE 0.9% IV 1,000 ML 100 ML IV CONT (02:32)
[2021-06-23 06:42] VITALS: BP 112/70; PULSE 71; RESP 16; TEMP 35.9; O2SAT 97
[2021-06-23 06:49] LABS: Basophils Percent Auto 0.4 % (0.2-1.2); Eosinophils Absolute Auto 0.2 K/mm3 (0-0.3); Eosinophils Percent Auto 1.7 % (0-4.4); Hematocrit 31.4 % (37.0-47.0); Hemoglobin 10.1 g/dL (12.0-15.0); Immature Granulocyte Absolute 0.09 K/mm3 (0.00-0.031); Immature Granulocyte Percent A 0.8 % (0-0.5); Lymphocytes Absolute Auto 1.16 K/mm3 (0.9-3.2); Lymphocytes Percent Auto 10.9 % (18.3-44.2); Mean Corpuscular HGB Conc 32.2 g/dl (32-36); Mean Corpuscular Hemoglobin 31.1 pg (26-34); Mean Corpuscular Volume 96.6 fl (80-100); Mean Platelet Volume 11.1 fl (7.4-10.4); Monocytes Absolute Auto 0.7 K/mm3 (0.1-0.6); Monocytes Percent Auto 6.4 % (2.6-8.5); Neutrophils Absolute Auto 8.5 K/mm3 (1.3-6.7); Neutrophils Percent Auto 79.8 % (45.5-73.1); Platelet Count Result 135 k/mm3 (150-375); Red Blood Count 3.25 M/mm3 (4.2-5.4); Red Cell Distribution Width 12.6 % (11.5-14.5); White Blood Count 10.6 K/mm3 (4.5-10.0)
[2021-06-23 07:05] LABS: Anion Gap 4 mmol/L (8-16); Blood Urea Nitrogen 7 mg/dL (7-17); Calcium 8.3 mg/dL (8.4-10.2); Carbon Dioxide 24 mmol/L (22-30); Chloride 107 mmol/L (98-107); Estimated CRCL calculation 84 ml/min; Estimated Glomerular Filt Rate > 60; Glucose 99 mg/dL (65-110); Potassium 3.4 mmol/L (3.4-5.0); Sodium 135 mmol/L (137-145)
[2021-06-23] MEDS: buPROPion HCL XL (24 HR) 150 MG TABCR 300 MG PO (09:39)
[2021-06-23] MEDS: ALPRAZolam (*CRX) 0.25 MG TABLET PO (09:40)
--- NOTE | 2021-06-23 15:58 | PM.DS ---
DS: Admitting Diagnosis Admitting Diagnosis bilaeral nephrolithiasis DS: Discharge Diagnosis Discharge Diagnosis (1) Hydronephrosis with urinary obstruction due to ureteral calculus: Code(s): N13.2 - Hydronephrosis with renal and ureteral calculous obstruction Status: Acute Assessment and Plan: From ER at [facility] after she was found to have an obstructing left ureteral stone with hydronephrosis S/p cystoscopy with stent placement per Dr. Llanes Pain managment S/p ceftriaxone UC-->Escherichia Coli (2) Abnormal urinalysis: Code(s): R82.90 - Unspecified abnormal findings in urine Status: Acute Assessment and Plan: UC noted (3) Bilateral nephrolithiasis: Onset Date: 06/21/21 Code(s): N20.0 - Calculus of kidney Status: Chronic (4) Anxiety: Code(s): F41.9 - Anxiety disorder, unspecified Status: Acute Assessment and Plan: Continue home meds DS: Summary Hospital Course Hospital Course: 40-year-old lady with history of kidney stone at the age of 22 was transferred to [facility] for management of an obstructing left ureteral stone noted on imaging done in the emergency department at the [facility] [place]. She developed acute left flank pain last evening around 21:30 with associated nausea and vomiting. The pain was colicky in nature and did radiate into the left lower quadrant. Initially she thought it was perhaps due to food that she had eaten earlier in the evening. CT of the abdomen and pelvis showed bilateral nephrolithiasis with obstructing left ureteral stone with moderate hydronephrosis. She underwent cystoscopy with stent placement per Dr. Llanes and she was having quite a bit of cramping and pulling pain. She also reported dysuria and hematuria though that just started after her cystoscopy. She has not had fever, chills, or sweats. She reported nausea but no vomiting. Overall she has improved clinically. Her pain is controlled and she reports clear urine. She did receive IV ceftriaxone. UC grew Escherichia Coli and she will be discharged on levofloxacin. She was been give instructions to follow with urology outpatient. In addition she has been advised to establish care with a PCP. Time Spent with Patient Time attestation: Total time spent providing and/or coordinating discharge services: 45 Exam Const: General: no acute distress, alert and awake Orientation/consciousness: patient oriented x3 HENMT: Head: normocephalic and atraumatic Ears: hearing grossly normal bilaterally and external ears normal Face and sinus: face symmetric Mouth: Yes Normal oral and palatal mucosa present Eyes: Pupils: Equal, round and reactive pupils present EOM: EOMs intact bilaterally Neck: Neck: full ROM, trachea midline and no JVD Thyroid: thyroid normal Chest: Chest palpation & inspection: normal inspection of the chest Resp: Effort & Inspection: normal respiratory effort Auscultation: clear to auscultation bilaterally Cardio: Jugular venous distension: no JVD Rate: regular rate Rhythm: regular rhythm Heart sounds: S1 normal heart sound present and S2 normal heart sound present GI: Inspection: normal to inspection Auscultation: normal bowel sounds : General: Yes no CVA tenderness Back/Spine/Pelvis: Back: no CVA tenderness Skin: General skin exam: normal color Rashes: no rashes Neuro: General: patient oriented x3 and CN's II-XI intact bilaterally Cranial nerves: Yes Equal, round and reactive pupils present Speech: normal speech Psych: Appearance: grossly normal Affect: normal affect Judgement: Good judgement present (Psych) DS: Data Data Completed and Pending Labs on day of discharge: Labs from last 24 hours 06/23/21 06/23/21 06:18 06:18 WBC 10.6 H RBC 3.25 L Hgb 10.1 L Hct 31.4 L MCV 96.6 MCH 31.1 MCHC 32.2 RDW 12.6 Plt Count 135 L MPV 11.1 H Immature Gran % (Auto) 0.8 H Neut % (Auto)
== END 2021-06-23 09:55 | disposition home or self-care (01) ==
LOC: ANH3MED 18:27
PROVIDERS: Urology; Admitting Provider Internal Medicine; Visit Provider Internal Medicine
PROC: (CPT 52352; principal; 2021-06-21 17:00)
DX: N13.2 Hydronephrosis with renal and ureteral calculous obstruction (principal); N30.01 Acute cystitis with hematuria; F41.9 Anxiety disorder, unspecified; F17.210 Nicotine dependence, cigarettes, uncomplicated; B96.20 Unspecified Escherichia coli [E. coli] as the cause of diseases classified elsewhere
CPT/HCPCS: 52332; 36415; 74018; 74420; 80048; 83735; 85025; 85055; 96361; 96365; 96367; 96374; 96375; 96376; A9270; C1769; C1887; C2617; G0378; G0379; J0131; J0696; J1100; J2250; J2270; J2405; J2704; J3010; J7030; J7120; Q9966